=== PATIENT | female | born 1985 | race Caucasian/White ===

== ENCOUNTER 2021-06-14 01:46 | Day surgery (SDC) | payer OTHER, SELFPAY ==
[2021-06-08 18:30] VITALS: BMI 23.0
[2021-06-14] VITALS (7 sets, daily range): BP systolic 101–119; BP diastolic 49–80; PULSE 55–78; RESP 9–20; TEMP 36.2–37.3; O2SAT 100
[2021-06-14] MEDS: LACTATED RINGERS 1,000 ML 30 ML IV CONT ×2 (06:30→08:18)
--- NOTE | 2021-06-14 06:47 | P.PNAN_ITS ---
Anes - Initial Pre Proc Eval Procedure: Operation Date: 06/14/21 07:30 Proposed Procedures p Biopsy Lesion Lower Right Mandible #27 Area - Bahman Ashby DMD Date/Time: 06/14/21 06:47 Surgeon: Bahman Ashby DMD Pre Op Diagnosis: lesion of mandible Patient Data Age: 36 Gender: F Height: 1.6 m Weight: 60.8 kg Last Vital Signs Temp 37.3 C 06/14/21 06:05 Pulse 57 L 06/14/21 06:05 Resp 20 06/14/21 06:05 BP 101/65 06/14/21 06:05 Pulse Ox 100 06/14/21 06:05 Allergies Allergy/AdvReac Type Severity Reaction Status Date / Time No Known Allergies Allergy Verified 06/08/21 18:18 Home Medications Medication Instructions Recorded Confirmed Type No Home Medications 06/08/21 06/08/21 History Patient hx anesthesia problems: none Family hx anesthesia problems: none PMFSH Surgical History Surgical History (Updated 06/14/21 @ 06:53 by Venu Vasquez MD) [place] teeth extracted Social History Social History Smoking status: Never smoker Alcohol intake: current Drinks per week: 3 Living arrangements: with family Spiritual care concerns: No Anes - Eval Final PreProcedure Day of Procedure 06/14/21 06:47 Patient weight: normal Heart: regular rate and rhythm Lungs: clear to auscultation Airway: Mallampati scale class II Neurological: alert and oriented Last oral intake: >/= 8 hours ASA classification: I Emergent: no Anesthetic plan: proceed Anesthesia type and monitoring: general GIVS and standard monitoring Informed Consent: The patient's anesthetic plan and its attendant risks and benefits were discussed with the patient/family/POA. Questions were solicited and answers provided to the satisfaction of the patient/family/POA.
--- NOTE | 2021-06-14 07:21 | P.HP_ITS ---
H&P: HPI History of Present Illness Date/Time: 06/14/21 07:21 Chief Complaint: lesion in jaw PMFSH Surgical History Surgical History (Updated 06/14/21 @ 06:53 by Venu Vasquez MD) [place] teeth extracted Social History Social History Smoking status: Never smoker Alcohol intake: current Drinks per week: 3 Living arrangements: with family Spiritual care concerns: No Meds Home Medications and Allergies Home Medications Medication Instructions Recorded Confirmed Type No Home Medications 06/08/21 06/08/21 History Allergies Allergy/AdvReac Type Severity Reaction Status Date / Time No Known Allergies Allergy Verified 06/08/21 18:18 Vital Signs Vital Signs - 24 hr 06/14/21 06:05 Temperature 37.3 C Pulse Rate 57 L Respiratory Rate 20 Blood Pressure 101/65 Pulse Oximetry 100 Assessment and Plan Assessment and plan (1) Lesion of mandible: Code(s): M27.9 - Disease of jaws, unspecified Status: Acute Assessment and Plan: lesion right mandible. biopsy mandible area #27
--- NOTE | 2021-06-14 07:22 | WPDHPUPDATE1 ---
History and Physical Update Update Date/Time: 06/14/21 07:22 History and Physical has been reviewed, including an updated exam of the patient. There are NO changes in the patient's condition. Risks, benefits, and alternatives have been discussed and questions answered. Patient agrees to proceed with procedure.
[2021-06-14] MEDS: LIDOCAINE 2%-EPI (FOR DENTAL BLOCK) 1.7 ML CARTRIDGE 3.4 ML INFILTRATE (08:02)
--- NOTE | 2021-06-14 08:27 | PM.OP ---
Procedure Note - Brief Procedure Note - Brief Date of procedure: 06/14/21 Pre-op diagnosis: lesion of mandible Surgeon: Bahman Ashby, LUCIANO Preoperative diagnosis lesion area of number 27 postop diagnosis same. Anesthesia general anesthesia and 2cc of 2% lidocaine with 100,000 epinephrine. Complications none estimated blood loss 5cc.Patient encountered in operating room under under the care of the anesthesia service who induced a general anesthetic. Patient was draped in usual manner for an intraoral surgical procedure. Oral cavity was suctioned free of debris and throat pack was was placed. Local anesthetic administered. A 15 blade was used to make a circular incision in the anterior right mandible with a distal releasing incision in the area of tooth number 30 full-thickness flaps elevated to the buccal. Drill was used to remove bone mesial and distal to tooth number 27. The area was then curetted and bone like material was obtained. The wound was then thoroughly irrigated and closed using 4 0 chromic gut suture in interrupted fashion. Oral cavity was suctioned free of debris and throat pack was removed. Care of the patient was turned to the anesthesia service who extubated the patient transferred to recovery in stable condition.
== END 2021-06-14 09:56 | disposition home or self-care (01) ==
PROVIDERS: Visit Provider Dentist
PROC: (CPT 20240; principal; 2021-06-14 07:30)
DX: M27.9 Disease of jaws, unspecified (principal)
CPT/HCPCS: 21040; A9270; J0131; J0330; J1100; J1170; J2250; J2370; J2405; J2704; J3010; J7120